=== PATIENT | male | born 1960 | race Caucasian/White ===

== ENCOUNTER 2024-01-26 11:09 | Emergency (ER) | payer OTHER, SELFPAY ==
[2024-01-26 11:11] VITALS: BP 134/54; PULSE 72; RESP 16; TEMP 36.3; O2SAT 93
[2024-01-26 11:25] VITALS: BP 134/54; PULSE 72; RESP 16; TEMP 36.6; O2SAT 93
--- NOTE | 2024-01-26 11:49 | ED.RN ---
PATIENT MADE AWARE HE NEEDS TO FOLLOW UP WITH THE [facility] FOR URINE DRUG SCREEN.
--- NOTE | 2024-01-26 12:08 | EDS_ITS ---
HPI History of Present Illness HPI Narrative: 63-year-old male no seen past medical history. Was cutting grass at [employer] where he works and got his left small finger lacerated the distal end.. Tetanus is not up-to-date. He is right-hand dominant. Denies any other injuries. Chief Complaint: Laceration Informant: patient Occured/Mechanism Mechanism/Context: Yes injury Onset/Context/Timing Onset: Today and Hours Context: Sudden Onset Timing: Continuous Quality of Pain: Sharp Current Severity: Mild Maximum Severity: Mild Associated Symptoms Associated Symptoms: Negative for Parasthesia, Weakness or Loss of Funtion Narrative Narrative: 63-year-old male left small finger laceration will need repaired. Tetanus Immunization: >10 years Prior similar symptoms: No Recent Illness/Hospitalization: No PFSH PFSH Medical History no medical history no medical history Allergy/AdvReac Type Severity Reaction Status Date / Time No Known Allergies Allergy Verified 01/26/24 11:26 Social History Smoking Status: Never smoker ROS ROS ED ROS Narrative Denies recent illness. Review of Systems ROS Unobtainable: Denies due to encephalopathy Constitutional Constitutional ED: Denies chills, fever(s) or subjective Eyes Eyes: Denies blurry vision or change in vision ENT ENT ED: Denies ear pain, rhinorrhea or sore throat Cardiovascular Cardiovascular: Denies chest pain or palpitations Respiratory/Chest Respiratory/Chest: Denies cough or dyspnea Gastrointestinal Gastrointestinal: Denies abdominal pain Genitourinary Genitourinary ED: Denies dysuria or hematuria Musculoskeletal Musculoskeletal: Denies back pain Integumentary Denies abscess Neurologic Neurologic: Denies headache(s) Psychiatric Psychiatric: Denies anxiety or depression Endocrine Endocrinology: Denies cold intolerance or heat intolerance Hematologic/Lymphatic Hematologic/Lymphatic: Denies easy bleeding or easy bruising Allergic/Immunologic Allergic/Immunologic ED: Denies mouth swelling, tongue swelling or urticaria EXAM Physical Exam Narrative Exam Narrative: Well-appearing she is 3-year-old male. Vital signs stable afebrile. HEENT exam unremarkable. Lungs clear. Heart regular rate and rhythm rate about 70. Chest wall ribs nontender. Abdomen soft nontender. Moving all 4 extremities. Neurovascular intact. Left hand palmar aspect he has a significant laceration to the palmar aspect of his distal phalanx of his left small finger. Is a flap. Will deftly need to be repaired. Distally is neurovascularly intact. He has normal flexion extension. No obvious bone or joint or tendon involvement. Const Vital Signs: 01/26/24 11:11 01/26/24 11:25 Temperature 97.3 F L 97.8 F Temperature Source Temporal Oral Pulse Rate 72 72 Respiratory Rate 16 16 Blood Pressure 134/54 H 134/54 H Blood Pressure Mean 80 80 Pulse Ox 93 93 Oxygen Delivery Method Room Air Positive well nourished and well developed; Negative for cachectic, contractures or unkempt General Appearance ED: well developed and NAD; Negative for unkempt, cachectic, contractures, cyanotic or diaphoretic Nutritional Appearance: Negative for cachectic HEENT Reports moist mucous membranes normocephalic and atraumatic; Negative for trauma or tenderness Eyes PERRL and EOMs intact bilaterally General Eye ED: Negative for other Neck full ROM and supple General: Negative for tenderness Lymph Lymphatic: Negative for other Chest Wall inspection of chest normal and palpation of chest normal Chest: Negative for other Resp normal respiratory effort and clear to auscultation bilaterally Effort and Inspection: Negative for pain with movement Auscultation: Negative for rales, rhonchi, wheezes or diminished lung sounds Cardio regular rate, regular rhythm, S1 normal heart sound, S2 normal heart sound and no murmurs Rate: Negative for bradycardia or tachycardic Rhythm: Negative for abnormal rhythm GI non-tender, non-distended and no masses Inspection: Negative for abdominal distention Auscultation: normoactive bowel sounds Palpation: soft; Negative for tender or rebound tenderness present Bladder / Kidney Exam: No other Back/Spine no CVA tenderness General Back: Negative for CVA tenderness Cervical Spine: Negative for cervical spine tenderness Thoracic Spine / Upper Back: Negative for thoracic spinal tenderness Lumbar Spine / Lower Back: Negative for lumbar spinal tenderness Extremity normal to inspection and full ROM Extremity Narrative: Except flap laceration left small finger palmar aspect distal end of the distal phalanx. Will need repaired. Neurovascular intact. Bleeding. No foreign body or infection. General Extremety ED: Negative for edema General Extremity: Negative for edema Neuro oriented x3, CN's II-XII intact bilaterally, moves all extremities and no focal motor deficits Sensorium / Orientation: alert, oriented to person, oriented to place and oriented to time; Negative for orientation impaired or lethargic Motor Exam: strength 5/5 throughout Psych mental status grossly normal Appearance: Negative for unkempt Attitude: No agitated Mood & Affect: Negative for depressed, anxious or tearful Skin General Skin Exam: Negative for petechiae Lesions: no lesions Rashes: no rashes Trauma: laceration MDM MDM MDM Narrative Medical decision making narrative: 63-year-old male Worker's Comp. injury of the left small finger laceration. Tetanus need to be updated. He will be digitally blocked and this will be washed, explored and repaired. Digital block of the left small finger. Once proper anesthesia obtained it was cleaned using Shur-Clens washed with saline. Copiously irrigated explored. It was closed using 11 simple interrupted 4-0 Ethilon sutures. Proper hemostasis and wound closure obtained. It was a flap laceration. History & Record Review Discussion w/independent historian: Patient Procedures Lacerations Left small finger flap laceration repair:: Length: 2.5 in Depth: Sub Q Shape: Flap Prep: Shure-Clens Laceration repair: Digital block, Irrigated, Lidocaine, Skin sutures and Wound explored Number of Sutures/Felipe: 11 Suture Information: Ethilon, Simple and 4-0 Comment: Left small finger flap laceration distal phalanx. Involve the skin and subcu tissue. Was not in the bone or the joint. Normal flexion exte nsion and touch sensation. Digital block. Cleaned with Shur-Clens. Washed with saline and explored. Irrigated with saline. Closed using 11 simple interrupted 4-0 Ethilon sutures. Proper hemostasis wound closure obtained. Patient was instructed on wound care and suture removal. Discharge Plan Triage Chief Complaint: Laceration ED Provider: Lopez Mazariegos Dx/Rx/DC Orders Clinical Impression: Finger laceration, Encounter related to worker's compensation claim Instructions: ED Laceration, Hand: All Closures Primary Care Provider: Care Physician,No Primary Referrals: [facility] [Group of Physicians] - 10-14 Days suture removal Care Physician,No Primary [Primary Care Provider] - Activity Restrictions/Additional Instructions: Ice and elevate to decrease pain and swelling. Motrin and Tylenol for pain. Clean the wound daily with soap and water or peroxide and water. Apply antibiotic ointment. Do not soak this in any water. Keep it clean and covered at work. Stitches out in minimal to 10 days and I would go 14 days. Watch for any signs of infection such as pus, red streaks, fever or significant swelling. If seen return. Print Language: [place]an Disposition Disposition: Home, Self Care
[2024-01-26] MEDS: Lidocaine 1% (20 ml mdv) 20 ML Vial 10 ML INFILT (12:25)
[2024-01-26] MEDS: Diphth,Pertuss(Acell),Tet Vac 0.5 ML Vial IM (12:25)
== END 2024-01-26 14:00 | disposition home or self-care (01) ==
PROVIDERS: Emergency Provider Emergency Medicine; Visit Provider Emergency Medicine
DX: S61.217A Laceration without foreign body of left little finger without damage to nail, initial encounter (principal); W26.8XXA Contact with other sharp object(s), not elsewhere classified, initial encounter; Y93.89 Activity, other specified; Y99.0 Civilian activity done for income or pay; Y92.89 Other specified places as the place of occurrence of the external cause; Z23 Encounter for immunization
CPT/HCPCS: 12002; 90715; 99284